=== PATIENT | male | born 1985 | race Caucasian/White ===

== ENCOUNTER 2016-09-09 16:27 | Emergency (ER) | payer MEDICAID ==
[~2016-09-09] VITALS: Ht 175.3 cm; Wt 140.8 kg
[2016-09-09 16:33] VITALS: BP 140/96
--- NOTE | 2016-09-09 16:39 | NUR ---
PT TAKEN TO BED 6
--- NOTE | 2016-09-09 16:40 | NUR ---
31/M BIB FAMILY c/o epigastric pain X 2 days. pain 6/10 radiating to back. pt denies injury or truama. DENIES N/V/D; SKIN IS PINK/WARM/DRY; AAOX4 WITH EVEN AND STEADY GAIT; LUNGS CLEAR BL; HR EVEN AND REGULAR; PATIENT STATES PAIN OF 6/10 AT THIS TIME; VSS; PATIENT POSITIONED FOR COMFORT; HOB ELEVATED; BEDRAILS UP X2; BED DOWN. ER MD MADE AWARE OF PT STATUS.
[2016-09-09] MEDS ORDERED: DICYCLOMINE HCL LIQUID 20 MG, ALUMINUM HYD/MAG/SIMETHICONE 30 ML, LIDOCAINE VISCOUS 2% ... PO ONE ×3 (16:50)
[2016-09-09] MEDS ORDERED: ACETAMINOPHEN EXTRA STRENGTH 500 MG TAB PO ONE (16:50)
[2016-09-09] MEDS ORDERED: ONDANSETRON 4 MG ODT PO ONE (16:55)
--- NOTE | 2016-09-09 17:11 | NUR ---
US AT BEDSIDE.
[2016-09-09 18:58] VITALS: BP 120/68
--- NOTE | 2016-09-09 18:58 | NUR ---
Patient discharged with v/s stable. Written and verbal after care instructions given and explained. Patient alert, oriented and verbalized understanding of instructions. Ambulatory with steady gait. All questions addressed prior to discharge. ID band removed. Patient advised to follow up with PMD. Rx of NORCO & ZOFRAN ODT given. Patient educated on indication of medication including possible reaction and side effects. Opportunity to ask questions provided and answered.
== END 2016-09-09 18:58 | disposition home or self-care (01) ==
LOC: MED 16:27
DX: K30 Functional dyspepsia (principal); K25.9 Gastric ulcer, unspecified as acute or chronic, without hemorrhage or perforation
CPT/HCPCS: 76705; 81002; 99284; Q0092; S0119